=== PATIENT | male | born 1960 | race American Indian/Alaskan Native ===

== ENCOUNTER 2017-11-04 14:55 | Inpatient (IN) | payer SELFPAY ==
--- NOTE | 2017-11-04 15:25 | Emergency Department Report ---
Chief Complaint: Dyspnea/Respdistress Stated Complaint: SHORTNESS OF BREATH/HYPERTENION - HPI History of Present Illness: 57-year-old male past medical history hypertension presents with complaint of substernal chest pain since yesterday with increased fatigue and shortness of breath with exertion. Patient also complaining of lower extremity swelling bilaterally. States he feels more fatigued than usual and also feels slightly short of breath at rest. Complaining of slight cough. Feels heaviness/ tightness in center of chest. Patient states he has not had any blood pressure medicine for over one week - ROS Review of Systems: Increased fatigue for 1 day - Exam Vital Signs: Vital Signs 11/04/17 15:07 Temperature 97.3 F L Pulse Rate 69 Respiratory 16 Rate Blood Pressure 218/125 O2 Sat by Pulse 98 Oximetry Physical Exam: Heart S1-S2, +2 pitting edema bilateral anterior pretibial regions MSE screening note: Focused history and physical exam performed. Due to findings the following was ordered: Screening Assessment/Plan/Differential Dx: Chest pain, shortness of breath 1- This initial assessment/diagnostic orders/clinical plan/ treatment(s) is/are subject to change based on pt's health status, clinical progression and re- assessment by fellow clinical providers in the ED. Further treatment and workup at subsequent clinical provers discretion. Patient/guardians urged not to elope from ED as their condition may be serious if not clinically assessed and managed. 2-pro BnP, BMP, troponin, CK-MB, EKG, chest x-ray ED Disposition for MSE Condition: Stable
[2017-11-04] MEDS ORDERED: NORVASC PO ONE (15:29)
[2017-11-04] MEDS ORDERED: CATAPRES PO ONE (15:32)
[2017-11-04 15:49] LABS: Basophils % (Auto) 0.4 % (0.0-1.8); Eosinophils % (Auto) 5.8 % (0.0-4.3); Hematocrit 44.6 % (35.5-45.6); Hemoglobin 15.4 gm/dl (11.8-15.2); Mean Corpuscular HGB Conc 34 % (32-34); Mean Corpuscular Hemoglobin 30 pg (28-32); Mean Corpuscular Volume 86 fl (84-94); Platelet Count 218 K/mm3 (140-440); Red Blood Count 5.17 M/mm3 (3.65-5.03); Red Cell Distribution Width 14.1 % (13.2-15.2); White Blood Count 8.8 K/mm3 (4.5-11.0)
[2017-11-04 17:39] LABS: Anion Gap 15 mmol/L; BUN/Creatinine Ratio 15; Blood Urea Nitrogen 18 mg/dL (9-20); Calcium 8.9 mg/dL (8.4-10.2); Carbon Dioxide 29 mmol/L (22-30); Chloride 104.1 mmol/L (98-107); Glucose 64 mg/dL (75-100); Potassium 3.3 mmol/L (3.6-5.0); Sodium 145 mmol/L (137-145)
[2017-11-04 18:29] LABS: Alanine Aminotransferase 33 units/L (7-56); Albumin 4.2 g/dL (3.9-5); Albumin/Globulin Ratio 1.6 %; Alkaline Phosphatase 61 units/L (35-129); Total Protein 6.9 g/dL (6.3-8.2)
--- NOTE | 2017-11-04 18:37 | XRay Report ---
FINAL REPORT EXAM: XR CHEST 1V AP HISTORY: anterior chest pain TECHNIQUE: AP portable view of the chest PRIORS: None. FINDINGS: Lines, tubes, and devices: N/A Lungs and pleura: Trachea is normal in position. Mild linear scarring in the lateral left costophrenic angle is seen. Lungs are otherwise clear of consolidation, pleural effusion, vascular congestion, or pneumothorax. Cardiomediastinal silhouette: Cardiac and mediastinal silhouettes are unremarkable. Other: Bony structures are intact. IMPRESSION: Mild left base atelectasis laterally.
[2017-11-04 18:54] LABS: Bilirubin,Direct < 0.2 mg/dL (0-0.2); Bilirubin,Indirect 0.3 mg/dL
--- NOTE | 2017-11-04 20:07 | Emergency Department Report ---
ED Chest Pain HPI - General Chief Complaint: Dyspnea/Respdistress Stated Complaint: SHORTNESS OF BREATH/HYPERTENION Time Seen by Provider: 11/04/17 17:12 Source: patient Mode of arrival: Ambulatory Limitations: No Limitations - History of Present Illness Initial Comments: Patient with history of HTN and has not been on his meds for several months. He has not had PCP in 5 years He is a smoker. Had a stress test over a year ago. No cath ever. No history of CAD/CO. He did have surgery for an inguinal hernia 6 months ago and was discharged with hypertension meds. He does not have blood pressure cuff at home. Also had SOB and excessive fatigue. MD Complaint: chest pain, other (SOB) -: Gradual, week(s) (1) Onset: during rest Pain Location: substernal Pain Radiation: none Severity: moderate Severity scale (0 -10): 5 Quality: tightness, heaviness, pressure Consistency: constant Improves With: rest Worsens With: exertion, inspiration re: dyspnea Other Symptoms: leg swelling - Related Data Home Medications Medication Instructions Recorded Confirmed Last Taken Lisinopril [Zestril TAB] 25 mg PO QDAY 10/03/15 10/03/15 10/03/15 Previous Rx's Medication Instructions Recorded Last Taken Type traMADol [Ultram] 50 mg PO Q6HR PRN #14 tablet 09/26/15 10/03/15 Rx HYDROcodone/APAP 5-325 [[place] 1 - 2 each PO Q4HR PRN #30 tablet 10/09/15 Unknown Rx 5/325] Hydrochlorothiazide [Hctz] 12.5 mg PO QDAY #30 capsule 10/09/15 Unknown Rx amLODIPine [Norvasc] 10 mg PO DAILY #30 tab 10/09/15 Unknown Rx cloNIDine [Catapres] 0.2 mg PO BID #60 tablet 10/09/15 Unknown Rx Allergies Allergy/AdvReac Type Severity Reaction Status Date / Time No Known Allergies Allergy Verified 10/03/15 20:10 Heart Score - HEART Score History: Moderately suspicious EKG: Non-specific Age: 45-65 Risk factors: 1-2 risk factors Troponin: < normal limit HEART Score: 4 ED Review of Systems ROS: Stated complaint: SHORTNESS OF BREATH/HYPERTENION Other details as noted in HPI Constitutional: weakness. denies: chills, fever Eyes: denies: eye pain, eye discharge, vision change ENT: denies: ear pain, throat pain Respiratory: shortness of breath. denies: cough, wheezing Cardiovascular: chest pain, edema. denies: palpitations Endocrine: no symptoms reported Gastrointestinal: denies: abdominal pain, nausea, diarrhea Genitourinary: denies: urgency, dysuria Musculoskeletal: denies: back pain, joint swelling, arthralgia Skin: denies: rash, lesions Neurological: denies: headache, weakness, paresthesias Psychiatric: denies: anxiety, depression Hematological/Lymphatic: denies: easy bleeding, easy bruising ED Past Medical Hx - Past Medical History Previous Medical History?: Yes Hx Hypertension: Yes Hx Heart Attack/AMI: No Hx Congestive Heart Failure: No Hx Diabetes: No Hx Liver Disease: No Hx Renal Disease: No Hx Seizures: No Hx Asthma: No Hx COPD: No Additional medical history: hernia - Surgical History Past Surgical History?: Yes Hx Appendectomy: Yes Additional Surgical History: left acl repair. splenectomy - Social History Smoking Status: Current Every Day Smoker Substance Use Type: Alcohol - Medications Home Medications: Home Medications Medication Instructions Recorded Confirmed Last Taken Type traMADol [Ultram] 50 mg PO Q6HR PRN #14 tablet 09/26/15 10/03/15 10/03/15 Rx Lisinopril [Zestril TAB] 25 mg PO QDAY 10/03/15 10/03/15 10/03/15 History HYDROcodone/APAP 5-325 [[place] 1 - 2 each PO Q4HR PRN #30 tablet 10/09/15 Unknown Rx 5/325] Hydrochlorothiazide [Hctz] 12.5 mg PO QDAY #30 capsule 10/09/15 Unknown Rx amLODIPine [Norvasc] 10 mg PO DAILY #30 tab 10/09/15 Unknown Rx cloNIDine [Catapres] 0.2 mg PO BID #60 tablet 10/09/15 Unknown Rx ED Physical Exam - General Limitations: No Limitations General appearance: alert, in no apparent distress - Head Head exam: Present: atraumatic, normocephalic - Eye Eye exam: Present: normal appearance - ENT ENT exam: Present: mucous membranes moist - Neck Neck exam: Present: normal inspection - Respiratory Respiratory exam: Present: normal lung sounds bilaterally. Absent: respiratory distress - Cardiovascular Cardiovascular Exam: Present: regular rate, normal rhythm. Absent: systolic murmur, diastolic murmur, rubs, gallop - GI/Abdominal GI/Abdominal exam: Present: soft, normal bowel sounds - Rectal Rectal exam: Present: deferred - Extremities Exam Extremities exam: Present: normal inspection, pedal edema - Back Exam Back exam: Present: normal inspection - Neurological Exam Neurological exam: Present: alert, oriented X3 - Psychiatric Psychiatric exam: Present: normal affect, normal mood - Skin Skin exam: Present: warm, dry, intact, normal color. Absent: rash ED Course Vital Signs 11/04/17 11/04/17 11/04/17 15:07 15:40 15:42 Temperature 97.3 F L Pulse Rate 69 82 82 Respiratory 16 Rate Blood Pressure 218/125 218/132 218/125 O2 Sat by Pulse 98 Oximetry 11/04/17 11/04/17 11/04/17 16:18 16:30 16:45 Temperature Pulse Rate Respiratory Rate Blood Pressure 158/106 167/105 O2 Sat by Pulse 98 97 94 Oximetry 11/04/17 11/04/17 11/04/17 17:00 17:15 17:30 Temperature Pulse Rate Respiratory Rate Blood Pressure 167/105 165/109 168/107 O2 Sat by Pulse 96 97 93 Oximetry 11/04/17 11/04/17 11/04/17 17:45 17:50 18:01 Temperature 98.4 F Pulse Rate Respiratory Rate Blood Pressure 164/114 159/112 O2 Sat by Pulse 94 94 Oximetry 11/04/17 11/04/17 11/04/17 18:16 18:30 18:45 Temperature Pulse Rate Respiratory Rate Blood Pressure 173/104 165/107 162/94 O2 Sat by Pulse 96 98 96 Oximetry 11/04/17 11/04/17 11/04/17 19:00 19:15 19:30 Temperature Pulse Rate Respiratory Rate Blood Pressure 162/94 165/91 165/91 O2 Sat by Pulse 95 96 98 Oximetry ED Medical Decision Making - Lab Data Result diagrams: 11/04/17 15:32 11/04/17 15:32 low potassium but otherwise unremarkable labs. - EKG Data -: EKG Interpreted by De EKG shows normal: sinus rhythm, ST-T waves (T-wave inversion in II, III, aVF and V3- V6 and I with flat t-wave in aVL) Rate: normal - EKG Data Interpretation: nonspecific ST-T wave kris 11/04/17 20:15 Diffuse T-wave inversion. - Radiology Data Radiology results: report reviewed CXR: left basilar atelectasis. - Medical Decision Making Patient with hypertensive emergency but improved to 160/100 after home meds given. He does have t-wave inversion and needs to be stratified with a heart score of 4 with unknown lipid status. I spoke with Dr. Pollard around 9:21 pm for admission and she accepted. Critical care attestation.: If time is entered above; I have spent that time in minutes in the direct care of this critically ill patient, excluding procedure time. ED Disposition Clinical Impression: ACS (acute coronary syndrome), Malignant hypertension Disposition: -09 OP ADMIT IP TO THIS HOSP Is pt being admited?: Yes Does the pt Need Aspirin: Yes Condition: Stable Instructions: Hypertension (ED) Referrals: PRIMARY CARE, [Primary Care Provider] - 3-5 Days Time of Disposition: 21:23
[2017-11-04] MEDS ORDERED: BABY ASPIRIN PO ONE (21:25)
[2017-11-04] MEDS ORDERED: SODIUM CHLORIDE FLUSH SYRINGE 10 ML IV PRN (21:48)
[2017-11-04] MEDS ORDERED: MILK OF MAGNESIA PO PRN (21:48)
[2017-11-04] MEDS ORDERED: DULCOLAX PR PRN (21:48)
[2017-11-04] MEDS ORDERED: TYLENOL PO PRN (21:48)
[2017-11-04] MEDS ORDERED: MORPHINE IV PRN (21:48)
[2017-11-04] MEDS ORDERED: ZOFRAN IV PRN (21:48)
[2017-11-04] MEDS ORDERED: NITRO-BID 2% TP ONE ×2 (21:59→22:46)
--- NOTE | 2017-11-04 21:59 | History and Physical Report ---
History of Present Illness Date of examination: 11/04/17 History of present illness: 37-year-old man with a history of hypertension, noncompliant with medication over the last 1 year[facility] with complaints of chest pain that started 1 week ago. Pain is in the upper chest, radiating to the left shoulder which he describes as a tightness, intermittent in nature lasting for hours, intensity 5/10, he cannot identify exacerbating or relieving factors. He denies nausea vomiting, diaphoresis, palpitation, admits to shortness of breath Review Of Systems: Constitutional: no weight loss Ears, eyes, nose, mouth and throat: no nasal congestion, no nasal discharge, no sinus pressure, blurry vision, diplopia Neck: No neck pain or rigidity. Cardiovascular: no orthopnea, palpitations Respiratory: No cough Gastrointestinal:no abdominal pain, hematochezia Genitourinary : no dysuria, frequency , hematuria Musculoskeletal: no muscle ache Integumentary: no rash, no pruritis Neurological: no parathesias, focal weakness Endocrine: no cold or heat intolerance, no polyuria or polydipsia Hematologic/Lymphatic: no easy bruising, no easy bleeding, no gland swelling Allergic/Immunologic: no urticaria, no angioedema. PAST MEDICAL HISTORY: hypertension PAST SURGICAL HISTORY: Appendicectomy, splenectomy, hernia repair FAMILY HISTORY:hypertension SOCIAL HISTORY: Smokes one third pack a day, no alcohol or drugs Medications and Allergies Allergies Allergy/AdvReac Type Severity Reaction Status Date / Time No Known Allergies Allergy Verified 10/03/15 20:10 Home Medications Medication Instructions Recorded Confirmed Last Taken Type traMADol [Ultram] 50 mg PO Q6HR PRN #14 tablet 09/26/15 10/03/15 10/03/15 Rx Lisinopril [Zestril TAB] 25 mg PO QDAY 10/03/15 10/03/15 10/03/15 History HYDROcodone/APAP 5-325 [[place] 1 - 2 each PO Q4HR PRN #30 tablet 10/09/15 Unknown Rx 5/325] Hydrochlorothiazide [Hctz] 12.5 mg PO QDAY #30 capsule 10/09/15 Unknown Rx amLODIPine [Norvasc] 10 mg PO DAILY #30 tab 10/09/15 Unknown Rx cloNIDine [Catapres] 0.2 mg PO BID #60 tablet 10/09/15 Unknown Rx Active Meds: Active Medications Acetaminophen (Tylenol) 650 mg PO Q4H PRN PRN Reason: Pain MILD(1-3)/Fever >100.5/PAN Aspirin (Ecotrin) 325 mg PO QDAY [place] Bisacodyl (Dulcolax) 10 mg RI QDAY PRN PRN Reason: Constipation unrelieved by MOM Enoxaparin Sodium (Lovenox) 30 mg SUB-Q QDAY [place] Magnesium Hydroxide (Milk Of Magnesia) 30 ml PO Q4H PRN PRN Reason: Constipation Morphine Sulfate (Morphine) 2 mg IV Q4H PRN PRN Reason: Pain, Moderate (4-6) Ondansetron HCl (Zofran) 4 mg IV Q8H PRN PRN Reason: N/V unrelieved by Reglan Sodium Chloride (Sodium Chloride Flush Syringe 10 Ml) 10 ml IV PRN PRN PRN Reason: LINE FLUSH Exam - Physical Exam Narrative exam: Gen. appearance: Patient lying in bed in no acute distress HEENT: Normocephalic/atraumatic, pupils equal round reactive to light, extra alkaline movement intact, no scleral icterus, no JVD or thyromegaly or nodule, neck is supple, mucous membrane moist, no erythema or exudate Heart: S1-S2, regular rate and rhythm Lungs: Clear to auscultation bilateral breathing comfortable Abdomen: Positive bowel sounds, nontender, nondistended, no organomegaly Extremities: No edema, cyanosis, clubbing Neuro:: Oriented 3 , cranial nerves II-12 intact, speech, motor intact Skin: No rash, nodules, warm dry - Constitutional Vitals: Temp Pulse Resp BP Pulse Ox 98.4 F 82 16 165/91 98 11/04/17 17:50 11/04/17 15:42 11/04/17 15:07 11/04/17 19:30 11/04/17 19:30 Results - Labs CBC & Chem 7: 11/04/17 15:32 11/04/17 15:32 Labs: Abnormal lab results 11/04/17 11/04/17 11/04/17 Range/Units 15:32 15:32 15:32 RBC 5.17 H (3.65-5.03) M/mm3 Hgb 15.4 H (11.8-15.2) gm/dl [place] % (Auto) 9.9 H (0.0-7.3) % Eos % (Auto) 5.8 H (0.0-4.3) % Sebastian # 0.9 H (0.0-0.8) K/mm3 Eos # 0.5 H (0.0-0.4) K/mm3 Potassium 3.3 L (3.6-5.0) mmol/L Glucose 64 L (75-100) mg/dL CK-MB (CK-2) 4.2 H (0.0-4.0) ng/mL - Imaging and Cardiology EKG: image reviewed Chest x-ray: image reviewed Assessment and Plan Assessment Hypertensive urgency Chest pain Plan Admit to medicine Start IV hydralazine, Nitropaste, aspirin, iv morphine Restart outpatient medications Check cardiac enzymes, lipid profile, stress test DVT prophylaxis
[2017-11-04] MEDS ORDERED: CATAPRES PO SCH (22:00)
[2017-11-04 22:17] LABS: Basophils % (Auto) 0.5 % (0.0-1.8); Hematocrit 43.7 % (35.5-45.6); Hemoglobin 15.1 gm/dl (11.8-15.2); Mean Corpuscular HGB Conc 35 % (32-34); Mean Corpuscular Hemoglobin 30 pg (28-32); Mean Corpuscular Volume 86 fl (84-94); Platelet Count 200 K/mm3 (140-440); Red Blood Count 5.08 M/mm3 (3.65-5.03); Red Cell Distribution Width 13.9 % (13.2-15.2); White Blood Count 7.8 K/mm3 (4.5-11.0)
[2017-11-04 22:40] LABS: Creatine Kinase MB 3.5 ng/mL (0.0-4.0)
[2017-11-04 22:41] LABS: Anion Gap 16 mmol/L; BUN/Creatinine Ratio 13; Blood Urea Nitrogen 16 mg/dL (9-20); Calcium 8.6 mg/dL (8.4-10.2); Carbon Dioxide 30 mmol/L (22-30); Chloride 102.2 mmol/L (98-107); Cholesterol 159 mg/dL (50-199); Glucose 97 mg/dL (75-100); HDL Cholesterol 69 mg/dL (40-59); LDL Cholesterol,Direct 73 mg/dL (50-130); Potassium 3.2 mmol/L (3.6-5.0); Sodium 145 mmol/L (137-145); Triglycerides 86 mg/dL (2-149)
[2017-11-04 22:42] LABS: Creatine Kinase 238 units/L (55-170)
[2017-11-04] MEDS ORDERED: CATAPRES ONE (22:46)
[2017-11-05 03:20] LABS: Creatine Kinase MB 3.2 ng/mL (0.0-4.0)
[2017-11-05 03:21] LABS: Creatine Kinase 212 units/L (55-170)
[2017-11-05 03:59] LABS: Basophils % (Auto) 0.6 % (0.0-1.8); Eosinophils % (Auto) 7.8 % (0.0-4.3); Hematocrit 40.1 % (35.5-45.6); Mean Corpuscular HGB Conc 35 % (32-34); Mean Corpuscular Hemoglobin 30 pg (28-32); Mean Corpuscular Volume 86 fl (84-94); Platelet Count 195 K/mm3 (140-440); Red Blood Count 4.64 M/mm3 (3.65-5.03); Red Cell Distribution Width 13.7 % (13.2-15.2)
[2017-11-05 04:23] LABS: Anion Gap 17 mmol/L; BUN/Creatinine Ratio 15; Blood Urea Nitrogen 16 mg/dL (9-20); Calcium 8.1 mg/dL (8.4-10.2); Carbon Dioxide 25 mmol/L (22-30); Chloride 101.3 mmol/L (98-107); Glucose 89 mg/dL (75-100); Sodium 140 mmol/L (137-145)
[2017-11-05 05:07] LABS: Potassium 2.9 mmol/L (3.6-5.0)
[2017-11-05] MEDS ORDERED: K-DUR PO ONE (05:12)
[2017-11-05] MEDS: KCL 10MEQ/100ML 10 MEQ/100 ML BAG IV SCH ×2 (08:45→11:29)
--- NOTE | 2017-11-05 09:11 | Progress Note ---
<GIDEON COLLAZO - Last Filed: 11/05/17 16:28> Assessment and Plan Assessment and plan: 37-year-old man with a history of hypertension, noncompliant with medication over the last [address] year, [facility] emergency room with complaints of chest pain that started 1 week ago. Pain is in the upper chest, radiating to the left shoulder which he describes as a tightness, intermittent in nature lasting for hours, intensity 5/10, he cannot identify exacerbating or relieving factors. He denies nausea vomiting, diaphoresis, palpitation, admits to shortness of breath Chest Pain Normal cardiac enzymes, Stress test to be completed Hypokalemia Replenished with KCL, now resolved Continue to monitor Hypertensive Urgency Hydralazine initiated DVT Prophylaxis Lovenox History Interval history: Patient denies CP, SOB, [place] Hospitalist Physical - Constitutional Vitals: Temp Pulse Resp BP Pulse Ox 97.8 F 49 L 19 134/85 95 11/05/17 05:22 11/05/17 08:41 11/05/17 05:22 11/05/17 05:22 11/05/17 05:22 General appearance: Present: no acute distress - EENT Eyes: Present: PERRL, EOM intact ENT: hearing intact, clear oral mucosa, dentition normal - Neck Neck: Present: supple, normal ROM - Respiratory Respiratory effort: normal Respiratory: bilateral: CTA - Cardiovascular Rhythm: regular Heart Sounds: Present: S1 & S2 - Extremities Extremities: no ischemia Extremity abnormal: edema Peripheral Pulses: within normal limits - Abdominal General gastrointestinal: soft, non-tender - Integumentary Integumentary: Present: clear, warm, dry - Psychiatric Psychiatric: appropriate mood/affect - Neurologic Neurologic: CNII-XII intact, moves all extremities - Allied Health Allied health notes reviewed: nursing Results - Labs CBC & Chem 7: 11/05/17 04:00 11/05/17 11:43 Labs: Laboratory Last Values WBC 8.0 K/mm3 (4.5-11.0) 11/05/17 04:00 RBC 4.64 M/mm3 (3.65-5.03) 11/05/17 04:00 Hgb 14.0 gm/dl (11.8-15.2) 11/05/17 04:00 Hct 40.1 % (35.5-45.6) 11/05/17 04:00 MCV 86 fl (84-94) 11/05/17 04:00 MCH 30 pg (28-32) 11/05/17 04:00 MCHC 35 % (32-34) H 11/05/17 04:00 RDW 13.7 % (13.2-15.2) 11/05/17 04:00 Plt Count 195 K/mm3 (140-440) 11/05/17 04:00 Lymph % (Auto) 35.5 % (13.4-35.0) H 11/05/17 04:00 [place] % (Auto) 9.4 % (0.0-7.3) H 11/05/17 04:00 Eos % (Auto) 7.8 % (0.0-4.3) H 11/05/17 04:00 Baso % (Auto) 0.6 % (0.0-1.8) 11/05/17 04:00 Lymph # 2.8 K/mm3 (1.2-5.4) 11/05/17 04:00 [place] # 0.7 K/mm3 (0.0-0.8) 11/05/17 04:00 Eos # 0.6 K/mm3 (0.0-0.4) H 11/05/17 04:00 Baso # 0.0 K/mm3 (0.0-0.1) 11/05/17 04:00 Seg Neutrophils % 46.7 % (40.0-70.0) 11/05/17 04:00 Seg Neutrophils # 3.7 K/mm3 (1.8-7.7) 11/05/17 04:00 D-Dimer 199.07 ng/mlDDU (0-234) 11/04/17 15:35 Sodium 140 mmol/L (137-145) 11/05/17 04:00 Potassium 2.9 mmol/L (3.6-5.0) L* 11/05/17 04:00 Chloride 101.3 mmol/L (98-107) 11/05/17 04:00 Carbon Dioxide 25 mmol/L (22-30) 11/05/17 04:00 Anion Gap 17 mmol/L 11/05/17 04:00 BUN 16 mg/dL (9-20) 11/05/17 04:00 Creatinine 1.1 mg/dL (0.8-1.5) 11/05/17 04:00 Estimated GFR > 60 ml/min 11/05/17 04:00 BUN/Creatinine Ratio 15 % 11/05/17 04:00 Glucose 89 mg/dL (75-100) 11/05/17 04:00 POC Glucose 86 (70-105) 11/05/17 08:02 Calcium 8.1 mg/dL (8.4-10.2) L 11/05/17 04:00 Total Bilirubin 0.50 mg/dL (0.1-1.2) 11/04/17 15:35 Direct Bilirubin < 0.2 mg/dL (0-0.2) 11/04/17 15:35 Indirect Bilirubin 0.3 mg/dL 11/04/17 15:35 AST 34 units/L (5-40) 11/04/17 15:35 ALT 33 units/L (7-56) 11/04/17 15:35 Alkaline Phosphatase 61 units/L (35-129) 11/04/17 15:35 Total Creatine Kinase 212 units/L (55-170) H 11/05/17 02:15 CK-MB (CK-2) 3.2 ng/mL (0.0-4.0) 11/05/17 02:15 CK-MB (CK-2) Rel Index 1.5 (0-4) 11/05/17 02:15 Troponin T < 0.010 ng/mL (0.00-0.029) 11/05/17 02:15 NT-Pro-B Natriuret Pep 182.4 pg/mL (0-900) 11/04/17 15:35 Total Protein 6.9 g/dL (6.3-8.2) 11/04/17 15:35 Albumin 4.2 g/dL (3.9-5) 11/04/17 15:35 Albumin/Globulin Ratio 1.6 % 11/04/17 15:35 Triglycerides 86 mg/dL (2-149) 11/04/17 22:00 Cholesterol 159 mg/dL (50-199) 11/04/17 22:00 LDL Cholesterol Direct 73 mg/dL (50-130) 11/04/17 22:00 HDL Cholesterol 69 mg/dL (40-59) H 11/04/17 22:00 Cholesterol/HDL Ratio 2.30 % 11/04/17 22:00 <DEJAN HYMAN R - Last Filed: 11/06/17 00:22> Assessment and Plan Assessment and plan: I saw and evaluated the patient. I agree with the findings and the plan of care as documented in the Nurse Practitioner's~note, with the following corrections and additions. Stress test cancelled due to low K level, will be done tomorrow. He also noted to have sinus bradycardia to clonidine, which is now stopped. He is now on Hydralazine for BP control. Hospitalist Physical - Constitutional Vitals: Temp Pulse Resp BP Pulse Ox 97.8 F 71 18 182/107 93 11/05/17 20:06 11/05/17 20:06 11/05/17 20:06 11/05/17 20:06 11/05/17 20:06 Results - Labs CBC & Chem 7: 11/05/17 04:00 11/05/17 11:43 Labs: Laboratory Last Values WBC 8.0 K/mm3 (4.5-11.0) 11/05/17 04:00 RBC 4.64 M/mm3 (3.65-5.03) 11/05/17 04:00 Hgb 14.0 gm/dl (11.8-15.2) 11/05/17 04:00 Hct 40.1 % (35.5-45.6) 11/05/17 04:00 MCV 86 fl (84-94) 11/05/17 04:00 MCH 30 pg (28-32) 11/05/17 04:00 MCHC 35 % (32-34) H 11/05/17 04:00 RDW 13.7 % (13.2-15.2) 11/05/17 04:00 Plt Count 195 K/mm3 (140-440) 11/05/17 04:00 Lymph % (Auto) 35.5 % (13.4-35.0) H 11/05/17 04:00 [place] % (Auto) 9.4 % (0.0-7.3) H 11/05/17 04:00 Eos % (Auto) 7.8 % (0.0-4.3) H 11/05/17 04:00 Baso % (Auto) 0.6 % (0.0-1.8) 11/05/17 04:00 Lymph # 2.8 K/mm3 (1.2-5.4) 11/05/17 04:00 [place] # 0.7 K/mm3 (0.0-0.8) 11/05/17 04:00 Eos # 0.6 K/mm3 (0.0-0.4) H 11/05/17 04:00 Baso # 0.0 K/mm3 (0.0-0.1) 11/05/17 04:00 Seg Neutrophils % 46.7 % (40.0-70.0) 11/05/17 04:00 Seg Neutrophils # 3.7 K/mm3 (1.8-7.7) 11/05/17 04:00 D-Dimer 199.07 ng/mlDDU (0-234) 11/04/17 15:35 Sodium 140 mmol/L (137-145) 11/05/17 04:00 Potassium 3.6 mmol/L (3.6-5.0) D 11/05/17 11:43 Chloride 101.3 mmol/L (98-107) 11/05/17 04:00 Carbon Dioxide 25 mmol/L (22-30) 11/05/17 04:00 Anion Gap 17 mmol/L 11/05/17 04:00 BUN 16 mg/dL (9-20) 11/05/17 04:00 Creatinine 1.1 mg/dL (0.8-1.5) 11/05/17 04:00 Estimated GFR > 60 ml/min 11/05/17 04:00 BUN/Creatinine Ratio 15 % 11/05/17 04:00 Glucose 89 mg/dL (75-100) 11/05/17 04:00 POC Glucose 83 (70-105) 11/05/17 13:06 Calcium 8.1 mg/dL (8.4-10.2) L 11/05/17 04:00 Total Bilirubin 0.50 mg/dL (0.1-1.2) 11/04/17 15:35 Direct Bilirubin < 0.2 mg/dL (0-0.2) 11/04/17 15:35 Indirect Bilirubin 0.3 mg/dL 11/04/17 15:35 AST 34 units/L (5-40) 11/04/17 15:35 ALT 33 units/L (7-56) 11/04/17 15:35 Alkaline Phosphatase 61 units/L (35-129) 11/04/17 15:35 Total Creatine Kinase 212 units/L (55-170) H 11/05/17 02:15 CK-MB (CK-2) 3.2 ng/mL (0.0-4.0) 11/05/17 02:15 CK-MB (CK-2) Rel Index 1.5 (0-4) 11/05/17 02:15 Troponin T < 0.010 ng/mL (0.00-0.029) 11/05/17 02:15 NT-Pro-B Natriuret Pep 182.4 pg/mL (0-900) 11/04/17 15:35 Total Protein 6.9 g/dL (6.3-8.2) 11/04/17 15:35 Albumin 4.2 g/dL (3.9-5) 11/04/17 15:35 Albumin/Globulin Ratio 1.6 % 11/04/17 15:35 Triglycerides 86 mg/dL (2-149) 11/04/17 22:00 Cholesterol 159 mg/dL (50-199) 11/04/17 22:00 LDL Cholesterol Direct 73 mg/dL (50-130) 11/04/17 22:00 HDL Cholesterol 69 mg/dL (40-59) H 11/04/17 22:00 Cholesterol/HDL Ratio 2.30 % 11/04/17 22:00
[2017-11-05] MEDS ORDERED: LOVENOX SUB-Q SCH (10:00)
[2017-11-05] MEDS: ECOTRIN PO SCH (13:26)
[2017-11-05] MEDS: NORVASC PO SCH (13:27)
[2017-11-05] MEDS: APRESOLINE IV PRN (13:27)
[2017-11-05] MEDS: LOVENOX SUB-Q SCH (13:27)
[2017-11-05] MEDS: APRESOLINE PO SCH ×2 (16:01→21:08)
[2017-11-06] MEDS: APRESOLINE IV PRN (01:07)
[2017-11-06] MEDS: APRESOLINE PO SCH (05:30)
[2017-11-06 06:35] LABS: Anion Gap 14 mmol/L; BUN/Creatinine Ratio 13; Blood Urea Nitrogen 13 mg/dL (9-20); Calcium 8.5 mg/dL (8.4-10.2); Carbon Dioxide 24 mmol/L (22-30); Chloride 104.6 mmol/L (98-107); Glucose 92 mg/dL (75-100); Sodium 140 mmol/L (137-145)
[2017-11-06] MEDS ORDERED: K-DUR PO NR (08:30)
[2017-11-06] MEDS ORDERED: K-DUR PO ONE (10:00)
[2017-11-06] MEDS: LOVENOX SUB-Q SCH (10:00)
[2017-11-06] MEDS: ECOTRIN PO SCH (10:00)
[2017-11-06] MEDS: NORVASC PO SCH (11:36)
[2017-11-06] MEDS ORDERED: LEXISCAN IV ONE (12:09)
[2017-11-06] MEDS ORDERED: APRESOLINE PO SCH (13:53)
[2017-11-06] MEDS ORDERED: HCTZ PO SCH (14:00)
[2017-11-06] MEDS ORDERED: CATAPRES PO SCH ×2 (14:00→16:00)
[2017-11-06] MEDS ORDERED: ZESTRIL PO SCH (14:00)
[2017-11-06 15:24] VITALS: BP 163/107
--- NOTE | 2017-11-06 16:04 | Discharge Summary ---
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 Pain is in the upper chest, radiating to the left shoulder which he describes as a tightness, intermittent in nature lasting for hours, intensity 5/10, he cannot identify exacerbating or relieving factors. He denies nausea vomiting, diaphoresis, palpitation, admits to shortness of breath. Patient was treated with antihypertensives, analgesics, calcium, IV fluids, and resume home medications. Patient was medically stable. Chest Xray revealed mild left base atelectasis laterally. Myocardial perfusion scan revealed EF 62% and no perfusion abnormality. Patient was treated with IVFs , Potassium, and antihypertensives. Discharge Diagnosis Chest Pain Hypokalemia Hypertensive Urgency Disposition: DC-01 TO HOME OR SELFCARE Time spent for discharge: 35 mins Core Measure Documentation - Palliative Care Palliative Care/ Comfort Measures: Not Applicable - Core Measures Any of the following diagnoses?: none Exam - Constitutional Vitals: Temp Pulse Resp BP Pulse Ox 98.2 F 91 H 18 163/107 97 11/06/17 05:08 11/06/17 15:22 11/06/17 13:09 11/06/17 15:22 11/06/17 08:56 General appearance: Present: no acute distress, well-nourished - EENT Eyes: Present: PERRL ENT: hearing intact, clear oral mucosa - Neck Neck: Present: supple, normal ROM - Respiratory Respiratory effort: normal Respiratory: bilateral: CTA - Cardiovascular Heart Sounds: Present: S1 & S2. Absent: rub, click - Extremities Extremities: pulses symmetrical, No edema Peripheral Pulses: within normal limits - Abdominal General gastrointestinal: Present: soft, non-tender, non-distended, normal bowel sounds Male genitourinary: Present: deferred - Rectal Rectal Exam: deferred - Integumentary Integumentary: Present: clear, warm, dry - Musculoskeletal Musculoskeletal: gait normal, strength equal bilaterally - Psychiatric Psychiatric: appropriate mood/affect, intact judgment & insight - Neurologic Neurologic: CNII-XII intact, moves all extremities - Allied Health Allied health notes reviewed: nursing Plan Activity: fall precautions Weight Bearing Status: Weight Bear as Tolerated Diet: low fat, low cholesterol, low salt Special Instructions: smoking cessation Follow up with: [facility] [Provider Group] - 7 Days PRIMARY CARE,MD [Primary Care Provider] - 3-5 Days Prescriptions: AtorvaSTATin [Lipitor] 20 mg PO QHS #30 tab Aspirin [Aspirin EC] 81 mg PO DAILY #30 tablet. hydrALAZINE [Apresoline TAB] 100 mg PO Q8HR #90 tablet <DEJAN HYMAN - Last Filed: 12/01/17 09:27> Providers - Providers Date of Admission: 11/04/17 21:48 Attending physician: DEJAN HYMAN 11/04/17 Consult to Cardiac Rehabilitation [CONS] Routine Reason For Exam: Phase I Primary care physician: SAL[employer] REPRESENTATIVE [employer] Hospitalization Hospital course: I saw and evaluated the patient. I agree with the findings and the plan of care as documented in the Nurse Practitioner's~note. Exam - Constitutional Vitals: Temp Pulse Resp BP Pulse Ox 98.2 F 91 H 18 163/107 97 11/06/17 05:08 11/06/17 15:22 11/06/17 13:09 11/06/17 15:22 11/06/17 08:56
--- NOTE | 2017-11-07 04:29 | Treadmill Report ---
SINGLE ISOTOPE DUAL STUDY MYOCARDIAL PERFUSION SCAN REPORT The patient received 10 mCi of technetium 99m Myoview intravenously under resting conditions. Resting myocardial perfusion scan was done. Subsequently, the patient underwent Lexiscan stress test as per the protocol. During Lexiscan stress, the patient received 28 mCi of technetium 99m Myoview intravenously. After 30-60 minutes, post stress images were done. Computerized reconstruction of the images was performed for analysis. The post-stress images revealed uniform distribution of the radiopharmaceutical in the left ventricular myocardium. Cinematic display of the gated study did not reveal any wall motion abnormality. The left ventricular ejection fraction was normal and was calculated to be 62%. The resting images were also normal. CONCLUSION: 1. No perfusion abnormality of the left ventricular myocardium was demonstrated in the resting as well as stress images obtained after the patient underwent Lexiscan stress test. 2. No wall motion abnormality. 3. Normal left ventricular ejection fraction of 62%. JOB# [id number] [facility]
== END 2017-11-06 17:51 | disposition home or self-care (01) | DRG 313 ==
LOC: ED 14:55 → 4A 21:48
PROVIDERS: ADMIT Internal Medicine; ATTEND Internal Medicine
DX: R07.89 Other chest pain (principal); I16.0 Hypertensive urgency; I10 Essential (primary) hypertension; F17.200 Nicotine dependence, unspecified, uncomplicated; Z82.49 Family history of ischemic heart disease and other diseases of the circulatory system; Z91.19 Patient's noncompliance with other medical treatment and regimen; E87.6 Hypokalemia
CPT/HCPCS: 36415; 71010; 78452; 80048; 80061; 80074; 82550; 82553; 82962; 83735; 83880; 84132; 84484; 85025; 85379; 93005; 93010; 93017; 99406; A9502; J0360; J1650; J2785; J3480

== ENCOUNTER 2021-06-24 12:55 | Emergency (ER) | payer SELFPAY | END 2021-06-24 14:00 | disposition left against medical advice (07) | LOC: ED 12:55 | DX: M54.2 Cervicalgia (principal); Z53.21 Procedure and treatment not carried out due to patient leaving prior to being seen by health care provider ==

== ENCOUNTER 2021-06-27 05:24 | Emergency (ER) | payer SELFPAY ==
--- NOTE | 2021-06-28 10:57 | Electrocardiograph Report ---
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
== END 2021-06-27 08:12 | disposition left against medical advice (07) ==
LOC: ED 05:24
DX: R07.9 Chest pain, unspecified (principal); Z53.21 Procedure and treatment not carried out due to patient leaving prior to being seen by health care provider
CPT/HCPCS: 93005